=== PATIENT | male | born 1985 ===

== ENCOUNTER 2018-01-17 01:39 | Emergency (ER) | payer SELFPAY ==
[2018-01-17 01:45] VITALS: BP 135/72; PULSE 115; RESP 20; TEMP 98.5; O2SAT 98
--- NOTE | 2018-01-17 02:10 | ED PDOC ---
Arrival/HPI - General Historian: Patient - History of Present Illness Time/Duration: Prior to Arrival Symptom Course: Unchanged Severity Level: Moderate Context: Work <Malik Lopez - Last Filed: 01/17/18 02:41> <Den Mckinney - Last Filed: 01/17/18 02:47> - General Chief Complaint: Trauma - History of Present Illness Narrative History of Present Illness (Text): 01/17/18 02:07 Pt is a 32 yo M with no significant PMH presents to ED due to fall prior to arrival. Pt states he was at work carrying boxes when he slipped and fell. Pt denies any dizziness or LOC during or before fall. Pt states he landed on his left lower back/pelvis. Pt is able to ambulate with some pain to the left lower back. Pt denies trauma to head. Pt denies CP, SOB, palpitations, dizziness, NAIR, nausea, vomiting, fever, or chills. (Malik Lopez) Past Medical History - Provider Review Nursing Documentation Reviewed: Yes - Psychiatric Hx Substance Use: No <Malik Lopez - Last Filed: 01/17/18 02:41> Family/Social History - Physician Review Nursing Documentation Reviewed: Yes Family/Social History: No Known Family HX Smoking Status: Never Smoked Hx Alcohol Use: No Hx Substance Use: No <Malik Lopez - Last Filed: 01/17/18 02:41> Allergies/Home Meds <Malik Lopez - Last Filed: 01/17/18 02:41> <Den Mckinney - Last Filed: 01/17/18 02:47> Allergies/Adverse Reactions: Allergies Penicillins Allergy (Verified 01/17/18 01:51) RASH Review of Systems - Physician Review All systems were reviewed & negative as marked: Yes - Review of Systems Constitutional: Normal Eyes: Normal ENT: Normal Respiratory: Normal Cardiovascular: Normal Gastrointestinal: Normal Genitourinary Male: Normal Musculoskeletal: Back Pain, Myalgias Skin: Normal Neurological: Gait Changes. absent: Headache, Dizziness, Focal Weakness, Disequilibrium Endocrine: Normal Hemo/Lymphatic: Normal Psychiatric: Normal <Malik Lopez - Last Filed: 01/17/18 02:41> Physical Exam Vital Signs Reviewed: Yes Temperature: Afebrile Blood Pressure: Normal Pulse: Tachycardic Respiratory Rate: Normal Appearance: Positive for: Well-Appearing Pain Distress: Moderate Mental Status: Positive for: Alert and Oriented X 3 - Systems Exam Head: Present: Atraumatic, Normocephalic Extroacular Muscles: Present: EOMI Mouth: Present: Moist Mucous Membranes Respiratory/Chest: Present: Clear to Auscultation, Accessory Muscle Use. No: Wheezes, Rales, Rhonchi Cardiovascular: Present: Normal S1, S2, Tachycardic. No: Murmurs, Rub, Gallop Abdomen: No: Tenderness, Distention, Peritoneal Signs, Rebound, Guarding Back: Present: Paraspinal Tenderness (left). No: Midline Tenderness Upper Extremity: Present: Normal Inspection Lower Extremity: Present: Normal Inspection Neurological: Present: GCS=15, CN II-XII Intact, Motor Func Grossly Intact, Normal Sensory Function Skin: Present: Warm, Dry, Normal Color Psychiatric: Present: Alert, Oriented x 3 <Malik Lopez - Last Filed: 01/17/18 02:41> Vital Signs Temp Pulse Resp BP Pulse Ox 01/17/18 01:45 98.5 F 115 H 20 135/72 98 Medical Decision Making <Malik Lopez - Last Filed: 01/17/18 02:41> <Dne Mckinney - Last Filed: 01/17/18 02:47> ED Course and Treatment: 01/17/18 02:13 Assessment: 32 yo M presents to ED with trauma to left lower back and pelvis s/p fall. Plan: - LS spine xray - Pelvic xray (Malik Lopez) LS spine x-ray Impression: As read by me, negative. Pelvic x-ray Impression: As read by me, negative. Patient Seen With Resident: In agreement with resident note which contains more details about the patient. Patient was seen and evaluated with resident. Came up with plan and treatment together. 32 year old male presents s/p fall prior to arrival. Patient is able to ambulate, but complaining of left lower back pain. Plan: -- Flexeril -- Toradol -- LS Spine AP/LAT X-ray -- Pelvis One View X-Ray (Todd Mckinneyin) - RAD Interpretation Radiology Orders: 01/17/18 02:05 LS SPINE AP/LAT [RAD] Stat 01/17/18 02:06 PELVIS ONE VIEW [RAD] Stat - Medication Orders Current Medication Orders: Discontinued Medications Cyclobenzaprine HCl (Flexeril) 10 mg PO STAT STA Stop: 01/17/18 02:34 Last Admin: 01/17/18 02:40 Dose: 10 mg Ketorolac Tromethamine (Toradol) 60 mg IM STAT STA Stop: 01/17/18 02:34 Last Admin: 01/17/18 02:41 Dose: 60 mg MAR Pain Assessment Document 01/17/18 02:41 [facility] (Rec: 01/17/18 02:41 [id number] Pain Reassessment Is this a pain reassessment? No Sleep Is patient sleeping during reassessment? No Presence of Pain Presence of Pain Yes Pain Scale Used Pain Scale Used Numeric Location Left, Right or Bilateral Left Upper or Lower Lower Pain Location Body Site Back IM Administration Charges Document 01/17/18 02:41 LA (Rec: 01/17/18 02:41 MA [id number]) Injection Site MAR Injection Site Left Gluteus Reagan Charges for Administration # of IM Administrations 1 <Malik Lopez - Last Filed: 01/17/18 02:41> - Scribe Statement The provider has reviewed the documentation as recorded by the Scribe <Den Mckinney - Last Filed: 01/17/18 02:47> - Scribe Statement Ashley Leyva Provider Scribe Attestation: All medical record entries made by the Scribe were at my direction and personally dictated by me. I have reviewed the chart and agree that the record accurately reflects my personal performance of the history, physical exam, medical decision making, and the department course for this patient. I have also personally directed, reviewed, and agree with the discharge instructions and disposition. (Den Mckinney) Disposition/Present on Arrival - Present on Arrival Any Indicators Present on Arrival: No History of DVT/PE: No History of Uncontrolled Diabetes: No Urinary Catheter: No History of Decub. Ulcer: No History Surgical Site Infection Following: None - Disposition Have Diagnosis and Disposition been Completed?: No Disposition Time: 02:35 Patient Plan: Discharge <Malik Lopez - Last Filed: 01/17/18 02:41> <Den Mckinney - Last Filed: 01/17/18 02:47> - Disposition Diagnosis: Fall, Lower back pain Disposition: HOME/ ROUTINE Condition: STABLE Discharge Instructions (ExitCare): Low Back Pain (DC) Additional Instructions: 1. Take Motrin as needed for pain, take with food 2. May use ice to affected area in 15 minute intervals 3. Recommend avoid heavy lifting for next day 4. Increase activity as tolerated 5. Return to ED if symptoms worsen Prescriptions: Ibuprofen [Motrin] 600 mg PO TID PRN #20 tab PRN Reason: Pain, Mild (1-3) Forms: [facility] (I[place]ic), WORK NOTE
--- NOTE | 2018-01-17 09:50 | RAD ---
PROCEDURE: Radiographs of the pelvis. HISTORY: fall COMPARISON: None. FINDINGS: BONES: Pelvic Bones: Unremarkable. Hips: Grossly unremarkable. JOINTS: Sacroiliac Joints: Unremarkable. Pubic Symphysis: Unremarkable. OTHER FINDINGS: None. IMPRESSION: Unremarkable radiographs of the pelvis.
--- NOTE | 2018-01-17 09:51 | RAD ---
PROCEDURE: Radiographs of the Lumbar Spine. HISTORY: fall COMPARISON: No prior. FINDINGS: BONES: Normal alignment. No listhesis. No fracture. DISC SPACES: Unremarkable. OTHER FINDINGS: None. IMPRESSION: Unremarkable radiographs of the lumbar spine.
== END 2018-01-17 03:20 | disposition home or self-care (01) ==
LOC: ED 01:39
DX: M54.5 Low back pain (principal)
CPT/HCPCS: 72100; 72170; 96372; 99285; J1885